=== PATIENT | male | born 1995 | race Caucasian/White ===

== ENCOUNTER 2017-11-28 12:28 | Emergency (ER) | payer OTHER ==
[~2017-11-28] VITALS: Ht 182.9 cm; Wt 127.0 kg
[2017-11-28 12:56] VITALS: BP 148/91; PULSE 82; RESP 16; TEMP 97.8; O2SAT 98
--- NOTE | 2017-11-28 13:12 | PD ---
HPI Chief Complaint: Injury Time Seen by Provider: 13:03 Travel History International Travel<30 days: No Contact w/Intl Traveler<30days: No Traveled to known affect area: No History of Present Illness HPI 22-year-old male presents to the emergency room for evaluation of right ankle pain and swelling after twisting his ankle last night. Patient states he was running in the parking lot when he stepped into a pothole and twisted his ankle. He immediately dropped what he was holding and fell down. Denies any other injuries. He took ibuprofen this morning without significant relief in symptoms. Pain is mild to moderate, worse with movement. Patient does not believe anything is broken because he has been able to walk on it. Denies any chronic medical conditions or daily medications. [facility] Social History Tobacco Use: No Allergies-Medications (Allergen,Severity, Reaction): Coded Allergies: No Known Allergies (Unverified , 11/28/17) Review of Systems Except as stated in HPI: all other systems reviewed are Neg Physical Exam Narrative GENERAL: Well-nourished, well-developed male in no acute distress. Afebrile. Ambulatory. SKIN: Focused skin assessment warm/dry. Moderate ecchymosis of the right ankle. HEAD: Normocephalic. EYES: No scleral icterus. No injection or drainage. NECK: Supple, trachea midline. No JVD or lymphadenopathy. CARDIOVASCULAR: Regular rate and rhythm without murmurs, gallops, or rubs. RESPIRATORY: Breath sounds equal bilaterally. No accessory muscle use. MUSCULOSKELETAL: No cyanosis. Moderate edema of the right ankle. Limited range of motion secondary to edema. 2+ dorsalis pedis pulse. Tenderness to palpation of the lateral malleolus. Negative squeeze test. No foot pain or distal knee pain. Data Data Last Documented VS Vital Signs Date Time Temp Pulse Resp B/P (MAP) Pulse Ox O2 Delivery O2 Flow Rate FiO2 11/28/17 12:56 97.8 82 16 148/91 (110) 98 Orders Orders Ankle, Complete ([id number]) (11/28/17 ) Ed Discharge Order (11/28/17 14:32) Splint Or Brace Apply/Monitor (11/28/17 14:32) MDM Medical Decision Making Medical Screen Exam Complete: Yes Emergency Medical Condition: Yes Medical Record Reviewed: Yes Differential Diagnosis Strain, sprain, contusion, fracture Narrative Course 22-year-old male presents to the emergency room for evaluation of right ankle pain and swelling after stepping in a pothole last night Denies any other injuries. Physical exam reveals significant edema and ecchymosis of the right ankle and tenderness to palpation of the lateral malleolus. Negative squeeze test. 2+ dorsalis pulse present. Patient is ambulatory. X-ray is negative. This is ankle sprain. Patient placed in ankle stirrup and told to follow-up with a primary care physician or return for worsening symptoms. He refused crutches. He understands and agrees to plan. Diagnosis Primary Impression: Right ankle sprain Qualified Codes: S93.401A - Sprain of unspecified ligament of right ankle, initial encounter Referrals: Primary Care Physician Additional Instructions: Rest and drink plenty of fluids. Take ibuprofen with food as directed, as needed for pain. Apply ice to the affected area for 20 minutes at a time, as needed for pain and swelling. Follow-up with a primary care physician. Return to the emergency room for worsening symptoms. Med/Other Pt SpecificInfo: Prescription(s) given Disposition: 01 DISCHARGE HOME Condition: Stable Eunice Ring Nov 28, 2017 13:12
--- NOTE | 2017-11-28 14:30 | RADRPT ---
EXAM DATE/TIME: 11/28/2017 13:46 [place] COMPARISON: No previous studies available for comparison. INDICATIONS : Right ankle pain after running and falling into a pot hole. MEDICAL HISTORY : None. SURGICAL HISTORY : None. ENCOUNTER: Initial ACUITY: 2 days PAIN SCORE: 6/10 LOCATION: Right ankle. FINDINGS: Three view exam was performed of the right ankle. The bony structures are in normal alignment. No e vidence of fracture or dislocation. Soft tissue swelling overlying the lateral malleolus. The ankle mortise is intact. No radiopaque foreign bodies are seen. Bony mineralization is normal. CONCLUSION: 1. No acute fracture or dislocation. Kailash Braden MD on November 28, 2017 at 14:08 Board Certified Radiologist. This report was verified electronically.
== END 2017-11-28 14:48 | disposition home or self-care (01) ==
LOC: NEPK 12:28
DX: S93.401A Sprain of unspecified ligament of right ankle, initial encounter (principal); X50.1XXA Overexertion from prolonged static or awkward postures, initial encounter; W17.2XXA Fall into hole, initial encounter; Y93.02 Activity, running; Y92.481 Parking lot as the place of occurrence of the external cause
CPT/HCPCS: 73610; 99283; L1906